=== PATIENT | male | born 2000 | race Caucasian/White ===

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

== ENCOUNTER 2021-07-21 12:16 | Day surgery (SDC) | payer SELFPAY ==
[~2021-07-21] VITALS: Ht 170.2 cm; Wt 56.8 kg
[~2021-07-21 12:16] MED LIST: CITA20 PO; ONDA4ODT SL
--- NOTE | 2021-07-21 13:55 | NUR ---
Patient up to Ambulate independently. Gait steady. PT IN ROOM 205 AWAITS SURGICAL REPAIR TO RIGHT WRIST BY DR. CONROY. PT COVID POSITIVE. History, Chart, Medications and Allergies reviewed before start of procedure.Lungs clear T/O to Auscultation. Pre-Op teaching done. Pt verbalizes understanding. Patient States Post-Procedure ride home has been arranged WITH LACIE (GIRLFRIEND).
--- NOTE | 2021-07-21 15:03 | NUR ---
Patient BEING DISCHARGED DUE TO SURGERY BEING CANCELED.
== END 2021-07-21 22:49 | disposition home or self-care (01) ==
LOC: ORSCMMR 12:16 → ORSCSDS 14:15 → ORSCMMR 22:49
PROC: 0PSP04Z Reposition Right Metacarpal with Internal Fixation Device, Open Approach (ICD-10-PCS; principal; 2021-07-21)
DX: S62.332A Displaced fracture of neck of third metacarpal bone, right hand, initial encounter for closed fracture (principal); J45.909 Unspecified asthma, uncomplicated; F17.210 Nicotine dependence, cigarettes, uncomplicated
CPT/HCPCS: J0690; J7120

== ENCOUNTER 2021-07-22 14:20 | Day surgery (SDC) | payer SELFPAY ==
[~2021-07-22] VITALS: Ht 170.2 cm; Wt 56.8 kg
--- NOTE | 2021-07-22 15:25 | NUR ---
Patient up to Ambulate independently. Gait steady. History, Chart, Medications and Allergies reviewed before start of procedure.Patient confirms NPO status and agrees with scheduled surgery. Pre-Op teaching done. Pt verbalizes understanding. Patient States Post-Procedure ride home has been arranged.
--- NOTE | 2021-07-22 18:13 | NUR ---
PA;TIENT AWAKE TO STEP WITH RNS. VSS
--- NOTE | 2021-07-22 18:55 | NUR ---
PATIENT GETTING DRESSED GIRL FRIEND ON HER WAY TO PICK HIM UP IN 10 MINUTES.
--- NOTE | 2021-07-22 19:02 | NUR ---
Discharge instructions reviewed with patient. Patient verbalizes understanding. Copy given to patient to take home. Patient States Post-Procedure ride home has been arranged. PATIENT REQUESTED TO WALK OUT WITH RN TO CAR WELL BALNANCED ON FEET ESCORTED OUT TO CAR.
== END 2021-07-22 23:12 | disposition home or self-care (01) ==
LOC: ORSCMMR 14:20
PROVIDERS: Orthopaedic Surgery
PROC: 0PSP04Z Reposition Right Metacarpal with Internal Fixation Device, Open Approach (ICD-10-PCS; principal; 2021-07-22 15:00)
DX: S62.332A Displaced fracture of neck of third metacarpal bone, right hand, initial encounter for closed fracture (principal); F17.210 Nicotine dependence, cigarettes, uncomplicated; J45.909 Unspecified asthma, uncomplicated
CPT/HCPCS: A9270; J0690; J1100; J1885; J2250; J2405; J2704; J3010; J7120